=== PATIENT | female | born 1955 | race Caucasian/White ===

== ENCOUNTER 2021-12-20 18:22 | Emergency (ER) | payer MEDICARE ==
[~2021-12-20] VITALS: Ht 157.5 cm; Wt 73.0 kg
[2021-12-20] MEDS ORDERED: KEFLEX500 MG PO (18:58)
[2021-12-20] MEDS ORDERED: CIPROFLOXACN500 MG PO (18:58)
[2021-12-20 19:39] VITALS: BP 133/72
== END 2021-12-20 19:55 | disposition home or self-care (01) ==
LOC: ED 18:22
DX: S91.332A Puncture wound without foreign body, left foot, initial encounter (principal); W45.0XXA Nail entering through skin, initial encounter; Y92.009 Unspecified place in unspecified non-institutional (private) residence as the place of occurrence of the external cause